=== PATIENT | female | born 1990 | race Caucasian/White ===

== ENCOUNTER 2018-07-31 18:23 | Outpatient (CLI) | payer OTHER, MEDICAID | END 2018-07-31 20:10 | disposition home or self-care (01) | LOC: OBT 18:23 → L-D 18:26 → OBT 20:10 | DX: O26.892 Other specified pregnancy related conditions, second trimester (principal); Z3A.22 22 weeks gestation of pregnancy; R10.9 Unspecified abdominal pain | CPT/HCPCS: 76815; 76817 ==

== ENCOUNTER 2018-07-31 23:08 | Inpatient (IN) | payer OTHER ==
[2018-07-31] MEDS: ACETAMINOPHEN 325 MG TAB PO (23:56)
[2018-08-01] MEDS: ACETAMINOPHEN 325 MG TAB PO ×2 (07:37→16:15)
[2018-08-01] MEDS: ONDANSETRON 4 MG TAB PO (16:41)
[2018-08-01 21:08] LABS: AMPHETAMINE/METHAMPHETAMINE Negative (NEGATIVE); BARBITURATES Negative (NEGATIVE); BENZODIAZEPINES Negative (NEGATIVE); CANNABINOIDS Positive (NEGATIVE); COCAINE Negative (NEGATIVE); OPIATES Negative (NEGATIVE)
== END 2018-08-01 21:17 | disposition home or self-care (01) | DRG 833 ==
LOC: OBT 23:08 → L-D 23:10
DX: O26.892 Other specified pregnancy related conditions, second trimester (principal); Z3A.22 22 weeks gestation of pregnancy
CPT/HCPCS: 80307